=== PATIENT | male | born 1970 | race Caucasian/White ===

== ENCOUNTER 2016-04-04 16:54 | Inpatient (IN) | payer MEDICARE ==
--- NOTE | ~2016-04-04 | A ---
[facility] Nutrition Therapy DATE: 04/17/16 Patient: LEIGHANN CLAYTON Physician: AFAIRF Address: [address] [place] [address] E Room/Bed: [address], Zip: [place] [id number] Admit Date: 04/04/16 Date of : [birth year] Height: 5 7 Weight: 174 79.3786 NUTRITIONAL ASSESSMENT: REASON: Length of stay assessment Admitting Dx: 46 y/o male admitted with auditory hallucinations, hx of paranoid schizophrenia PMH: Paranoid schizophrenia, COPD, HTN, asthma Anthropometrics: Ht: 67", admission wt: 175 lbs, no updated weight, BMI: 27 (overweight) Labs: No labs available Meds: Milk of Mg, Mag-al, KCL, Hydrochlorothiazide I/O & Bowel function: No issues Assessment: Chart reviewed, events noted. See admitting dx and PMH as stated above. Patient resides as [facility], is on disability, single. Has multiple previous admissions at various psych facilities. Patient is clinically overweight; although he scored 0 points on the malnutrition risk score he reports a fair appetite and 50 lb weight loss in the past year during the needs assessment. No past weights available for comparison. Patient has been out of room for meals with consistently good appetite per nursing. No updated weight. He is on a regular diet with large portion entree at lunch and dinner. No further nutrition interventions necessary at this time, see RD recs below. Dx: No nutrition dx Intervention: None at this time Monitoring, Evaluation and Goals: 1. Adequate oral intake > 50% of meals. 2. Prevent unitentional weight loss. Recommendations: 1. Continue regular diet, encourage adequate oral intake. Will continue to send large portion entree with lunch and dinner although the patient is more appropriate to receive larger portions at dinner only based on his BMI (overweight category). 2. Please weigh q 3 days for monitoring purposes. [facility] Nutrition Therapy DATE: 04/17/16 Patient: LEIGHANN CLAYTON Physician: AFAIRF Address: [address] [place] [address] E Room/Bed: [address], Zip: [place] [address] Admit Date: 04/04/16 Date of : [birth year] Height: 5 7 Weight: 174 [address] with any further nutritional needs. Mild nutrition risk Respectfully, Kiana Melton, RYLIE, LD [facility] cc: client file
--- NOTE | ~2016-04-04 | PN ---
Unit #: [id number] #: [id number] Patient: LEIGHANN GRIMALDO [id number] [facility] [address] [place] [address] [id number] I MR#: [id number] NAME: LEIGHANN GRIMALDO ROOM: [facility] Age: 46 Sex: M Admission Date: 04/04/2016 : 1970 Attending Physician: Debbie Dennis M.D. Admitting Physician: Debbie Dennis M.D. Primary Care Physician: Lazaro Doctor Not In System [facility] PROGRESS NOTES DATE April 10, 2016 DISCUSSION Mr. Grimaldo is a 46-year-old white male, who was seen today and chart was reviewed and the case was discussed with the staff. He has been anxious, withdrawn, but has not shown any agitation, irritability, or behavioral problems, and he has been cooperative with the treatment recommendations. He has been taking the medications and tolerating them fairly well with no reported side effects. MENTAL STATUS EXAMINATION Middle-aged white male, who was casually dressed with marginal personal hygiene and appears to be in no acute distress or discomfort. He was awake and alert on interaction with intact orientation. His mood is anxious with a congruent affect. His speech is slow and restricted in content. He denies any suicidal or homicidal ideations. His thought processes are disorganized with some looseness of associations. His insight and judgment remain slightly impaired. TREATMENT PLAN 1. We will continue him on his current medications and treatment protocol, and will monitor his response to the medications, and make further adjustments as needed. 2. We will continue to followup. Dictated by... Brian Rodriguez/chandrika TD: 04/11/2016 09:24 JOB #: [id number] Unit #: [id number] #: [id number] Patient: LEIGHANN GRIMALDO PROGRESS NOTES X Debbie Dennis MD PROGRESS NOTE
--- NOTE | ~2016-04-04 | DS ---
Unit #: [id number] #: [id number] Patient: LEIGHANN GRIMALDO [id number] [facility] [address] [place] [address] [id number] I MR#: [id number] NAME: LEIGHANN GRIMALDO ROOM: [facility] Age: 46 Sex: M Admission Date: 04/04/2016 : 1970 Discharge Date: 04/17/2016 Attending Physician: Debbie Dennis M.D. Primary Care Physician: Generic Doctor Not In System DISCHARGE SUMMARY IDENTIFYING DATA Mr. Grimaldo is a 46-year-old single white male, who is a resident of [place], [place] and was brought to the hospital accompanied by his sister. DISCHARGE DIAGNOSES Psychiatric: Chronic paranoid schizophrenia. Medical: Hypertension and asthma. Stressors: Moderate psychosocial stressors. HISTORY OF PRESENT ILLNESS Please see initial psychiatric evaluation for details. PAST PSYCHIATRIC HISTORY Please see initial psychiatric evaluation for details. PAST MEDICAL HISTORY Please see initial psychiatric evaluation for details. HOSPITAL COURSE The patient was admitted to the adult psychiatric unit at [facility] and was oriented to the hospital environment. Routine p.r.n. medications were initiated, and he was started back on his Clozaril therapy; however, the patient was seen to be exhibiting some significant psychosis with disorganized thoughts, speech, and behavior and as such, medications were adjusted and later Celexa was also added as an antidepressant. He was taking the medications regularly and was disorganized, he did not show any agitation or aggression and was able to show a decent and therapeutic response to the medications and as such, it was decided that he will be discharged home and will continue treatment on an outpatient basis. DISCHARGE MEDICATIONS Celexa 20 mg a day for depression, Clozaril 500 mg at bedtime for psychosis, Symbicort 2 puffs b.i.d. for asthma, aspirin 81 mg a day for coronary artery disease, Lipitor 10 mg a day for dyslipidemia, Oretic 25 mg a day for hypertension. DISCHARGE CONDITION Stable. PROGNOSIS Fair. Unit #: [id number] #: [id number] Patient: LEIGHANN GRIMALDO Dictated by... Brian Rodriguez/essencel TD: 04/18/2016 00:20 JOB #: [id number] DISCHARGE SUMMARY X Debbie Dennis MD DISCHARGE SUMMARY
--- NOTE | ~2016-04-04 | PN ---
Unit #: [id number] #: [id number] Patient: LEIGHANN GRIMALDO [id number] [facility] [address] [place] [address] [id number] I MR#: [id number] NAME: LEIGHANN GRIMALDO ROOM: [facility] Age: 46 Sex: M Admission Date: 04/04/2016 : 1970 Attending Physician: Debbie Dennis M.D. Admitting Physician: Debbie Dennis M.D. Primary Care Physician: Lazaro Doctor Not In System [facility] PROGRESS NOTES DATE 04/07/2016 DISCUSSION Mr. Grimaldo is a 46-year-old, white male who was seen today and chart was reviewed and case was discussed with the staff. He has been anxious, withdrawn, unkempt, disheveled, disorganized and rather seclusive to himself. Meanwhile, he has been taking the medication and tolerating them fairly well with no reported side effects. MENTAL STATUS EXAM Middle-aged white male who was casually dressed with marginal personal hygiene, appears to be in no acute distress or discomfort. He was awake and alert on interaction with impaired attention and concentration. His mood was anxious with congruent affect. His speech was slow and restricted in content. His thought processes were disorganized with some looseness of associations and paranoid ideations and delusional (1)____. His insight and judgement remains significantly impaired. TREATMENT PLAN 1. We will continue him on his current medications and treatment protocol. We will monitor his response and make further adjustments as needed. 2. We will continue to follow up. Dictated by... Brian Rodriguez/[place] TD: 04/09/2016 03:04 JOB #: [id number] Unit #: [id number] #: [id number] Patient: LEIGHANN GRIMALDO [facility] PROGRESS NOTES X Debbie Dennis MD PROGRESS NOTE
--- NOTE | ~2016-04-04 | PN ---
Unit #: [id number] #: [id number] Patient: LEIGHANN GRIMALDO [id number] [facility] [address] [place] [address] [id number] I MR#: [id number] NAME: LEIGHANN GRIMALDO ROOM: 13 Age: 46 Sex: M Admission Date: 04/04/2016 : 1970 Attending Physician: Debbie Dennis M.D. Admitting Physician: Debbie Dennis M.D. Primary Care Physician: Generic Doctor Not In System [facility] PROGRESS NOTES DATE OF SERVICE: 04/16/2016 SUBJECTIVE Mr. Grimaldo is a 46-year-old white male who was seen today and chart was reviewed and the case was discussed with the staff. He has been anxious, withdrawn, who appears to be doing much better in his mood and functioning, and has been cooperative with treatment recommendations. MENTAL STATUS EXAMINATION Middle-aged white male who was casually dressed with fair personal hygiene, appears to be in no acute distress or discomfort. He was awake and alert with intact orientation. His mood was anxious with a congruent. He denies any suicidal or homicidal ideations. His insight and judgment remain slightly impaired. TREATMENT PLAN 1. We will continue him on his current medications and treatment protocol. We will monitor his response and make further adjustments as needed. 2. We will continue to follow up. Dictated by... Brian Rodriguez/ander TD: 04/17/2016 06:06 JOB #: [id number] [facility] PROGRESS NOTES X Debbie Dennis MD PROGRESS NOTE
--- NOTE | ~2016-04-04 | PN ---
Unit #: [id number] #: [id number] Patient: LEIGHANN GRIMALDO [id number] [facility] [address] [place] [address] [id number] I MR#: [id number] NAME: LEIGHANN GRIMALDO ROOM: [facility] Age: 46 Sex: M Admission Date: 04/04/2016 : 1970 Attending Physician: Debbie Dennis M.D. Admitting Physician: Debbie Dennis M.D. Primary Care Physician: Lazaro Doctor Not In System [facility] PROGRESS NOTES DATE OF SERVICE: 04/08/2016 SUBJECTIVE Mr. Grimaldo is a 46-year-old white male who was seen today and chart was reviewed, and case was discussed with the staff. He has been anxious, withdrawn, and rather seclusive to himself and has been exhibiting bizarre behavior with disorganized thoughts and speech. Meanwhile, he has been taking the medications and tolerating them fairly well with no reported side effects. MENTAL STATUS EXAMINATION Middle-aged white male who was casually dressed with fair personal hygiene, appears to be in no acute distress or discomfort. He was awake and alert on interaction with intact orientation. His mood was anxious with a congruent affect. His speech was slow and goal directed. He denies any suicidal or homicidal ideations, and also denies any auditory or visual hallucinations. His insight and judgment remain significantly impaired. TREATMENT PLAN 1. We will continue him on his current medications and treatment protocol. We will monitor his response to medications and make further adjustments as needed. 2. We will continue to follow up. Dictated by... Brian Rodriguez/ander TD: 04/09/2016 01:28 JOB #: [id number] Unit #: [id number] #: [id number] Patient: LEIGHANN GRIMALDO [facility] PROGRESS NOTES X Debbie Dennis MD PROGRESS NOTE
--- NOTE | ~2016-04-04 | PN ---
Unit #: [id number] #: [id number] Patient: LEIGHANN CLAYTON [id number] [facility] [address] [place] [address] [id number] I MR#: [id number] NAME: LEIGHANN CLAYTON ROOM: 13 Age: 46 Sex: M Admission Date: 04/04/2016 : 1970 Attending Physician: Debbie Dennis M.D. Admitting Physician: Debbie Dennis M.D. Primary Care Physician: Lazaro Doctor Not In System [facility] PROGRESS NOTES DATE OF SERVICE: 04/14/2016 SUBJECTIVE Mr. Borjas is a 46-year-old white male, who was seen today and chart was reviewed and the case was discussed with the staff. He has been anxious, withdrawn, and rather seclusive to himself. Meanwhile, he has been cooperative with the treatment recommendations and has been taking the medications and tolerating them fairly well. MENTAL STATUS EXAMINATION Middle-aged white male, who was casually dressed with fair personal hygiene, appears to be in no acute distress or discomfort. He was awake and alert on interaction with intact orientation. His mood was anxious with a congruent affect. His speech was slow and goal directed. He denies any suicidal or homicidal ideations. His insight and judgment remain slightly impaired. TREATMENT PLAN 1. We will continue him on his current medications and treatment protocol. We will monitor his response to the medications and make further adjustments as needed. 2. We will continue to follow up. Dictated by... Brian Rodriguez/ander TD: 04/14/2016 18:21 JOB #: [id number] [facility] PROGRESS NOTES X Debbie Dennis MD PROGRESS NOTE
--- NOTE | ~2016-04-04 | PN ---
Unit #: [id number] #: [id number] Patient: LEIGHANN GRIMALDO [id number] [facility] [address] [place] [address] [id number] I MR#: [id number] NAME: LEIGHANN GRIMALDO ROOM: [facility] Age: 46 Sex: M Admission Date: 04/04/2016 : 1970 Attending Physician: Debbie Dennis M.D. Admitting Physician: Debbie Dennis M.D. Primary Care Physician: Lazaro Doctor Not In System [facility] PROGRESS NOTES DATE OF SERVICE: 04/11/2016 SUBJECTIVE Mr. Grimaldo is a 46-year-old white male, who was seen today and chart was reviewed and the case was discussed with the staff. He has been anxious and withdrawn, though has not shown any agitation or irritability and has been rather seclusive to himself. Meanwhile, he has been taking the medications and tolerating them fairly well with no reported side effects. MENTAL STATUS EXAMINATION Middle-aged white male, who was casually dressed with fair personal hygiene, appears to be in no acute distress or discomfort. He was awake and alert on interaction with intact orientation. His mood was anxious with a congruent affect. His speech was slow and restricted in content. He denies any suicidal or homicidal ideations and also denies any auditory or visual hallucinations. His thought processes were disorganized with some looseness of associations and paranoid ideations. His insight and judgment remain significantly impaired. TREATMENT PLAN 1. We will continue him on his current medications and treatment protocol. We will monitor his response and make further adjustments as needed. 2. We will continue to follow up. Dictated by... Brian Rodriguez/ander TD: 04/11/2016 09:20 JOB #: [id number] Unit #: [id number] #: [id number] Patient: LEIGHANN GRIMALDO PROGRESS NOTES X Debbie Dennis MD PROGRESS NOTE
--- NOTE | ~2016-04-04 | PN ---
Unit #: [id number] #: [id number] Patient: LEIGHANN GRIMALDO [id number] [facility] [address] [place] [address] [id number] I MR#: [id number] NAME: LEIGHANN GRIMALDO ROOM: [facility] Age: 46 Sex: M Admission Date: 04/04/2016 : 1970 Attending Physician: Debbie Dennis M.D. Admitting Physician: Debbie Dennsi M.D. Primary Care Physician: Generic Doctor Not In System [facility] PROGRESS NOTES DATE April 05, 2016 DISCUSSION Mr. Grimaldo is a 46-year-old white male, who was seen today and chart was reviewed and the case was discussed with the staff. He has been anxious, restless, withdrawn, and disorganized and disheveled, and unable to carry on any meaningful conversation. Meanwhile, he has been taking the medications and tolerating them fairly well with no reported side effects. MENTAL STATUS EXAMINATION Young white male, who was casually dressed with fair personal hygiene and appears to be in no acute distress or discomfort. He was awake and alert on interaction with intact orientation. His mood is anxious with a congruent affect. His speech is slow and restricted in content. His thought processes are disorganized with some looseness of associations. His insight and judgment remain significantly impaired. TREATMENT PLAN 1. We will continue him on his current medications and treatment protocol, and will monitor his response to the medications, and make further adjustments as needed. 2. We will continue to followup. Dictated by... Brina Rodriguez/chandrika TD: 04/08/2016 12:23 JOB #: [id number] Unit #: [id number] #: [id number] Patient: LEIGHANN GRIMALDO [facility] PROGRESS NOTES X Debbie Dennis MD PROGRESS NOTE
--- NOTE | ~2016-04-04 | PA ---
Unit #: [id number] #: [id number] Patient: LEIGHANN CLAYTON [id number] [facility] [address] [place] [address] [id number] I MR#: [id number] NAME: LEIGHANN CLAYTON ROOM: 12 Age: 46 Sex: M Admission Date: 04/04/2016 : 1970 Date of Assessment: Attending Physician: Debbie Dennis M.D. Admitting Physician: Debbie Dennis M.D. Primary Care Physician: Generic Doctor Not In System PSYCHIATRIC ASSESSMENT DATE OF SERVICE 04/04/2016. IDENTIFYING DATA Mr. Roe is a 46-year-old single white male, who is a resident of [place], [place], and was brought to the hospital accompanied by his sister. CHIEF COMPLAINT "I've been hearing voices on and off for 16 years." HISTORY OF PRESENT ILLNESS Mr. Roe is a 46-year-old single white male, who was brought to the hospital by his family. Upon presentation, he stated that he was told that he needs to come here from [facility], which is [facility] for assessment as he stated that he has been hearing voices, then further added by stating that he has been hearing voices on and off for the last 16 years and he cannot really hear the voice, but did not want to talk or mention what the voices were saying to him and was seemed to be blocking and trying to mask his auditory hallucinations. He reports that he has heard voices in the past, but is not hearing them right now and reports the voices will hurt him if he tells anyone what he is hearing. Therapist note added that he came into the office determined, disheveled, and quiet in his answers, continued to be after unrelated to the question ask and he stated that he has no longer been hearing voices and before that the voices are telling him to hurt himself. He is in danger, but then admitted the voices have told him not to tell anyone what they are saying or they will hurt him and he was scared of them and reports somewhat confused, whether he has been taking his medication or not, and was paranoid, crying, and afraid that people are trying to hurt him and admitted to not taking medications for 3 days and is afraid to take them as he feels that they are too strong. According to the patient, he also at times do not take the medications because of the voices telling him not to do them and as such, was seen to be acutely psychotic and danger to self and others and recommendation for inpatient level of care was made and patient was transferred to us. SUBSTANCE ABUSE HISTORY The patient denies any current alcohol and drug abuse. PAST PSYCHIATRIC HISTORY The patient has had a history of multiple inpatient psychiatric hospitalizations including [facility] #: [id number] #: [id number] [facility], and outpatient treatment through [facility] and review of the medical records indicate that he has been diagnosed and treated with chronic paranoid schizophrenia and he is currently supposed to be on psychotropic medication, but has been noncompliant with medications. PAST MEDICAL HISTORY COPD. ALLERGIES No known medication allergies. PERSONAL AND SOCIAL HISTORY A 46-year-old white male, who reports that he is single, disabled, and lives by himself and has poor social support system. MENTAL STATUS EXAMINATION Middle-aged white male, who was casually dressed with fair personal hygiene, appears to be in no acute distress or discomfort. He was awake and alert on interaction with intact orientation. His mood was anxious and depressed with congruent affect. His speech was slow and restricted in content. His thought processes were disorganized with some looseness of associations, flight of ideas, paranoid ideations and delusional behavior. His insight and judgment remain significantly impaired. DIAGNOSTIC IMPRESSION Psychiatric: Chronic paranoid schizophrenia by history. Medical: Hypertension and asthma. Stressors: Moderate psychosocial stressors. TREATMENT PLAN 1. The patient has presented with a history of chronic mental illness and has been decompensating and will need inpatient hospitalization for safety and stabilization. We will start him back on his home medication including his Clozaril therapy. 2. Supportive therapy was provided to the patient. 3. Safe, structured, and nourishing environment will be provided. ESTIMATED LENGTH OF STAY 5 to 7 days. ABILITY TO HELP SELF Limited. WILLINGNESS TO HELP SELF The patient appears to be willing to help self. STRENGTHS 1. Communicative. 2. Cooperative. PROBLEMS 1. Chronic dysphoric symptoms. 2. Poor social support system. DISCHARGE CRITERIA This will be contingent upon the patient's ability to show resolution of his depression and psychosis and his ability to stay safe to himself, Unit #: [id number] #: [id number] Patient: LEIGHANN CLAYTON particularly after discharge from the hospital. Dictated by... Brian Rodriguez/ander TD: 04/05/2016 07:10 JOB #: [id number] PSYCHIATRIC ASSESSMENT X Debbie Dennis MD X PSYCHIATRIC ASSESSMENT
--- NOTE | ~2016-04-04 | PN ---
Unit #: [id number] #: [id number] Patient: LEIGHANN GRIMALDO [id number] [facility] [address] [place] [address] [id number] I MR#: [id number] NAME: LEIGHANN GRIMALDO ROOM: [facility] Age: 46 Sex: M Admission Date: 04/04/2016 : 1970 Attending Physician: Debbie Dennis M.D. Admitting Physician: Debbie Dennis M.D. Primary Care Physician: Lazaro Doctor Not In System [facility] PROGRESS NOTES DATE 04/13/2016 DISCUSSION Mr. Grimaldo is a 46-year-old, white male who was seen today and chart was reviewed and case was discussed with the staff. He has been anxious, withdrawn and rather seclusive to himself. Meanwhile, he has been cooperative with treatment recommendations. He has been taking medications and tolerating them fairly well. MENTAL STATUS EXAM Middle-aged white male who was casually dressed with marginal personal hygiene, appears to be in no acute distress or discomfort. He was awake and alert with intact orientation. His mood was anxious with congruent affect. He denies any suicidal or homicidal ideation. His insight and judgement remains slightly impaired. TREATMENT PLAN 1. We will continue him on his current medications and treatment protocol. We will monitor his response to the medication and make further adjustments as needed. 2. We will continue to follow up. Dictated by... Brian Rodriguez/virgiina TD: 04/16/2016 02:39 JOB #: [id number] Unit #: [id number] #: [id number] Patient: LEIGHANN GRIMALDO [facility] PROGRESS NOTES X Debbie Dennis MD PROGRESS NOTE
--- NOTE | ~2016-04-04 | PN ---
Unit #: [id number] #: [id number] Patient: LEIGHANN GRIMALDO [id number] [facility] [address] [place] [address] [id number] MR#: [id number] NAME: LEIGHANN GRIMALDO ROOM: [facility] Age: 46 Sex: M Admission Date: 04/04/2016 : 1970 Attending Physician: Debbie Dennis M.D. Admitting Physician: Debbie Dennis M.D. Primary Care Physician: Lazaro Doctor Not In System [facility] PROGRESS NOTES DATE OF SERVICE: 04/15/2016 SUBJECTIVE Mr. Grimaldo is a 46-year-old white male who was seen today and chart was reviewed and the case was discussed with the staff. He has been anxious, withdrawn, disorganized, unkempt, disheveled, and facing the hallways and has been difficult to carry any meaningful conversation, though he has not shown any agitation or aggression. Meanwhile, he has been exhibiting some persistent depressive symptoms despite antidepressant therapy will be initiated. MENTAL STATUS EXAMINATION Middle-aged white male who was casually dressed with marginal personal hygiene, appears to be in no acute distress or discomfort. He was awake and alert with impaired attention and concentration. His mood was anxious with a congruent. His speech was slow and restricted in content. He denies any suicidal or homicidal ideations. His insight and judgment remain slightly impaired. TREATMENT PLAN 1. We will continue him on his current medications and treatment protocol. We will monitor his response to the medications and make further adjustments as needed. 2. We will continue to follow up. Dictated by... Brian Rodriguez/ander TD: 04/16/2016 01:13 JOB #: [id number] Unit #: [id number] #: [id number] Patient: LEIGHANN GRIMALDO [facility] PROGRESS NOTES X Debbie Dennis MD PROGRESS NOTE
--- NOTE | ~2016-04-04 | PN ---
Unit #: [id number] #: [id number] Patient: LEIGHANN CLAYTON [id number] [facility] [address] [place] [address] [id number] MR#: [id number] NAME: LEIGHANN CLAYTON ROOM: 12 Age: 46 Sex: M Admission Date: 04/04/2016 : 1970 Attending Physician: Debbie Dennis M.D. Admitting Physician: Debbie Dennis M.D. Primary Care Physician: Generic Doctor Not In System [facility] PROGRESS NOTES DATE OF SERVICE: 04/05/2016 SUBJECTIVE Mr. Roe is a 46-year-old white male who was seen today and chart was reviewed, and case was discussed with the staff. He has been anxious, withdrawn, and rather seclusive to himself. Meanwhile, he has been cooperative with treatment recommendation and has been taking medications and tolerating them fairly well. MENTAL STATUS EXAMINATION Middle-aged white male who was casually dressed with fair personal hygiene, appears to be in slight distress and discomfort. He was awake and alert on interaction with intact orientation. His mood was anxious with a congruent affect. He denies any suicidal or homicidal ideation. His insight and judgment remain significantly impaired. TREATMENT PLAN 1. We will continue him on his current medications and treatment protocol. We will adjust the medications. 2. We will continue to follow up. Dictated by... Brian Rodriguez/ander TD: 04/05/2016 16:51 JOB #: [id number] [facility] PROGRESS NOTES X Debbie Dennis MD PROGRESS NOTE
--- NOTE | ~2016-04-04 | PN ---
Unit #: [id number] #: [id number] Patient: LEIGHANN GRIMALDO [id number] [facility] [address] [place] [address] [id number] I MR#: [id number] NAME: LEIGHANN GRIMALDO ROOM: [facility] Age: 46 Sex: M Admission Date: 04/04/2016 : 1970 Attending Physician: Debbie Dennis M.D. Admitting Physician: Debbie Dennis M.D. Primary Care Physician: Lazaro Doctor Not In System [facility] PROGRESS NOTES DATE OF SERVICE 04/09/2016 DISCUSSION Mr. Grimaldo is a 46-year-old white male who was seen today. Chart was reviewed and case was discussed with the staff. He has been anxious, withdrawn, and rather seclusive to himself. Meanwhile, he has been cooperative with treatment recommendations and has been taking the medications and tolerating them fairly well with no reported side effects. MENTAL STATUS EXAMINATION Middle-aged white male who is casually dressed with marginal personal hygiene, appears to be in no acute distress or discomfort. The patient was awake and alert with impaired attention and concentration. His mood is anxious with congruent affect. His speech is slow and tangential. Her thought processes were disorganized with some looseness of associations and paranoid ideations. His insight and judgment remain significantly impaired. TREATMENT PLAN 1. We will continue him on his current medications and treatment protocol. We will monitor his response to the medications and make further adjustments as needed. 2. We will continue to follow up. Dictated by... Brian Rodriguez/suzie TD: 04/10/2016 11:37 JOB #: [id number] Unit #: [id number] #: [id number] Patient: LEIGHANN GRIMALDO PROGRESS NOTES X Debbie Dennis MD PROGRESS NOTE
--- NOTE | ~2016-04-04 | PN ---
Unit #: [id number] #: [id number] Patient: LEIGHANN GRIMALDO [id number] [facility] [address] [place] [address] [id number] I MR#: [id number] NAME: LEIGHANN GRIMALDO ROOM: [facility] Age: 46 Sex: M Admission Date: 04/04/2016 : 1970 Attending Physician: Debbie Dennis M.D. Admitting Physician: Debbie Dennis M.D. Primary Care Physician: Lazaro Doctor Not In System [facility] PROGRESS NOTES DATE 04/12/2016 DISCUSSION Mr. Grimaldo is a 46-year-old white male who was seen today and chart was reviewed and case was discussed with the staff. He has been anxious, withdrawn though has not shown any agitation, irritability and has been rather disorganized with blunted affect and minimal interaction. Meanwhile, he has been taking medications and tolerating them fairly well with no reported side effects. MENTAL STATUS EXAMINATION Middle-aged white male who was casually dressed with fair personal hygiene and appears to be in no acute distress or discomfort. He was awake and alert on interaction with intact orientation. His mood was anxious and depressed with congruent affect. His speech is slow and restricted in content. He denies any suicidal or homicidal ideations and also denies any auditory or visual hallucinations. His insight and judgement remains slightly impaired. TREATMENT PLAN 1. Will continue him on his current medications and treatment protocol. Will monitor his response to the medications and make further adjustments as needed. 2. Will continue to follow up. Dictated by... Brian Rodriguez/sanya TD: 04/13/2016 15:43 JOB #: [id number] Unit #: [id number] #: [id number] Patient: LEIGHANN GRIMALDO [facility] PROGRESS NOTES X Debbie Dennis MD PROGRESS NOTE
--- NOTE | ~2016-04-04 | HP ---
Unit #: [id number] #: [id number] Patient: RICHIE CLAYTON [id number] [place] [address] [id number] MR#: [id number] NAME: RICHIE CLAYTON ROOM: 12 Age: 46 Sex: M Admission Date: 04/04/2016 : 1970 Attending Physician: Debbie Dennis M.D. Admitting Physician: Debbie Dennis M.D. Primary Care Physician: Generic Doctor Not In System HISTORY AND PHYSICAL HISTORY OF PRESENT ILLNESS Richie is a 46 year old admitted to [address] [place] [address] reporting auditory hallucinations. He is a poor historian so his history is taken from his chart. PAST MEDICAL HISTORY 1. COPD. 2. Hyperlipidemia. 3. High blood pressure. PAST SURGICAL HISTORY Nothing reported. ALLERGIES No known drug allergies. SOCIAL HISTORY Smokes on occasion. Denies alcohol and illicit drug use. FAMILY HISTORY Medically noncontributory. REVIEW OF SYSTEMS He does not answer all questions appropriately. There are no reports of nausea, vomiting or diarrhea. He has had no cough or increased temperature. CURRENT MEDICATIONS 1. Clozaril 500 mg q.h.s. 2. Lipitor 10 mg q.h.s. 3. Albuterol nebs q.i.d. 4. Symbicort b.i.d. 5. Milk of Magnesia p.r.n. 6. Maalox p.r.n. 7. Tylenol p.r.n. 8. Nicotine patch 14 mg daily. 9. HCTZ 25 mg daily. 10. Aspirin 81 mg daily. PHYSICAL EXAMINATION GENERAL: Alert, well-nourished, in no apparent distress. VITAL SIGNS: Blood pressure 113/80, heart rate 80, respirations 16, temperature 98.6. Unit #: [id number] #: [id number] Patient: RICHIE CLAYTON WEIGHT: 175. HEIGHT: 5 feet 7 inches. SKIN: Warm and dry without rash or lesion. HEENT: Normocephalic. TMs not viewed. Oral and nasal passages clear. Conjunctivae clear. PERRLA. EOMs intact. NECK: Supple without lymphadenopathy or thyromegaly. HEART: Regular rate and rhythm without murmur. LUNGS: Clear. ABDOMEN: Soft, nontender. : Not done. EXTREMITIES: No evidence of cyanosis, clubbing or edema. Moves all without focal deficit. NEUROLOGICAL: Unable to complete extended exam. He does move all extremities without focal deficit. Hand teacher theater arts is equal and gait is normal. IMPRESSION Psychiatric admission. RECOMMENDATIONS PSYCHIATRIC: Per psychiatrist. MEDICAL: See no contraindications to participate in facility's activities. MEDICAL PROGNOSIS Good. MEDICAL CONDITION Stable. Dictated by... Iliana Abbott P.A.-C. for Brian Willard/sanya TD: 04/05/2016 16:12 JOB #: [id number] HISTORY AND PHYSICAL X Iliana Abbott HISTORY AND PHYSICAL
== END 2016-04-17 09:50 | disposition home or self-care (01) | DRG 885 ==
LOC: P1S 16:54
DX: F20.0 Paranoid schizophrenia (principal); I10 Essential (primary) hypertension; J45.909 Unspecified asthma, uncomplicated; J44.9 Chronic obstructive pulmonary disease, unspecified; E78.5 Hyperlipidemia, unspecified